=== PATIENT | female | born 1975 | race Caucasian/White ===

== ENCOUNTER 2016-10-14 14:47 | Emergency (ER) | payer BC ==
--- NOTE | 2016-10-18 14:46 | ER ---
ADMIT: 10/14/2016 RM/LOC: ER [facility] MR#: [id number] [address] [id number] [address] [place] [address] Emergency Room Report SEX: F AGE: 41 : 1975 DATE: 10/14/2016 ADDENDUM: CHIEF COMPLAINT: Abdominal pain. HISTORY OF PRESENT ILLNESS: This is a 41-year-old who ate macaroni and cheese at noon today, and then about 2 or 3 o'clock, she started having sudden onset of epigastric pain that went into her back. COURSE IN THE EMERGENCY ROOM: CBC, CMP, lipase, and ultrasound of her abdomen were done. Everything is essentially negative. I told her she could still have a nonfunctioning gallbladder, to follow a non-fat diet this weekend, to follow up with her primary care physician for a possible HIDA scan, push fluids, and again follow up with her primary and will return to the ER if worsens. CLINICAL IMPRESSION: Abdominal pain. CASPER Aguilar / Aleksandr Fields MD / eunice JOB #: [id number] CC: Aleksandr Fields MD, Attending Physician Jonathan Hughes MD, Family Physician
== END 2016-10-14 17:40 | disposition home or self-care (01) ==
LOC: ER 14:47
DX: R10.13 Epigastric pain (principal); Z88.6 Allergy status to analgesic agent; Z79.899 Other long term (current) drug therapy

== ENCOUNTER → 2016-10-17 | Outpatient (CLI) | payer BC | END | disposition home or self-care (01) | LOC: RAD.S 12:09 | DX: R10.9 Unspecified abdominal pain (principal) ==